=== PATIENT | female | born 1950 | race Caucasian/White ===

== ENCOUNTER 2019-04-08 00:37 | Outpatient (CLI) | payer MEDICARE, BC, SELFPAY ==
--- NOTE | 2019-04-08 10:01 | DI.MAMMO_ITS ---
EXAM: MG MAMMO SCREENING CLINICAL HISTORY: SCREENING Z12.39 TECHNIQUE: Mammograms were interpreted according to the usual protocol including computer analysis w [facility] CAD system, tomosynthesis and C-view imaging. COMPARISON: FINDINGS: Breasts are heterogeneously dense. No dominant mass or clumped microcalcification is identified in e ither breast. The current examination is compared with previous examinations including September 2016 and there has been no gross interval change appearance in comparison with the previous studies. IMPRESSION: No specific evidence of malignancy at this time. Routine screening examinations are suggested at yea rly intervals in this age group according the ACS ACR guidelines. Category 1, breast density category C
== END 2019-04-08 00:57 ==
PROVIDERS: PCP Nurse Practitioner Family; Visit Provider Nurse Practitioner Family
DX: Z12.31 Encounter for screening mammogram for malignant neoplasm of breast (principal)
CPT/HCPCS: 77063; 77067

== ENCOUNTER → 2019-06-04 09:41 | Outpatient (BNVA) | payer MEDICARE, BC, SELFPAY | PROVIDERS: PCP Nurse Practitioner Family; Referring Provider Nurse Practitioner Family; Visit Provider Physical Therapy Assistant | DX: Z12.11 Encounter for screening for malignant neoplasm of colon (principal); Z86.010 Personal history of colon polyps ==

== ENCOUNTER 2019-06-21 11:06 | Day surgery (SDC) | payer MEDICARE, BC, SELFPAY ==
--- NOTE | 2019-06-21 06:55 | W.COLOREPORT ---
Date of service: 06/21/19 Time of Service: 12:28 Colonoscopy Report Date of procedure: 06/21/19 Pre-op diagnosis general: Hx of polyps Post-op diagnosis procedure note: same (diverticulosis and polyps) Procedure: Colonoscopy with polypectomy Surgeon: Ariadna Quiles Anesthesia proc note operative: other (General/ ASA 2/ Joellen Wan CRNA) Estimated blood loss (mL): 3 Pathology: other (cecal polyps, ascending polyp and descending polyp) Complications: None Disposition: no change Indications: 68 y/o female with history of HTN presents for colonoscopy screening pre-op. Her last screening was in 2014, which was remarkable for tubular adenomatous polyps. She denies a family history of colon cancer. She denies any changes in bowel habits including bloody or black tarry stools, abdominal pain, diarrhea or constipation. She describes that she has noticed some food intolerances, to unhealthy items such as fried foods which cause her to have bloating and diarrhea. When she avoids these items, she does not have these symtpoms. She denies constitutional symptoms. Risks, benefits and complications have been reviewed. Complications include but are not limited to bleeding, pain, perforation, missed small lesion/polyp, sore throat, aspiration and adverse reaction to the medications. Questions were entertained and answered to their satisfaction and they wished to proceed. No guarantees were given or implied. Prep: Miralax/Dulcolax Procedure Start Time: 12:28 Procedure End Time: 12:53 Retraction Time: 15 minutes Findings: multiple sessile polyps severe diverticulosis of the sigmoid colon Procedure Description: After informed consent was obtained the patient was taken to the procedure room and placed in a left decubitous position. Monitors were applied and a time out was done. The patients name, date of , procedure, allergies to medications and metal in their body was reviewed. The patient was then sedated. Once sedated and comfortable a rectal exam was done. External exam was normal. Internal exam revealed a normal sphincter tone and no palpable masses. The scope was then introduced and retro-flexed. No internal hemorrhoids, masses or polyps were identified on retro-flexion. The scope was then advanced to the cecum without difficulty. The TI and appendiceal orifice were identified. The prep was good. The scope was then slowly retracted over 15 minutes back into the rectum. Polyps were removed with cold forceps in the cecum, ascending colon and descending colon. Severe sigmoid diverticulosis was also noted. The scope was removed and the patient was woken up and taken back to Same day surgery in stable condition. The patient tolerated the procedure well and there were no immediate complications. Follow up: The patient should follow up in 3-5 years unless they develop changes in bowel habits or other new gastrointestinal complaints.
--- NOTE | 2019-06-21 06:56 | W.PM.DSUDISC ---
Discharge Plan Disposition Patient Disposition: HOME Condition: Good Discharge Details Reason For Visit: SCREENING Attending Provider: Ariadna Quiles Primary Care Provider: Chuck Curry Home Meds and New Rx's Prescriptions: Continued metoprolol succinate [Toprol XL] 100 mg tablet extended release 24 hr 150 mg PO DAILY RF: 0 ibuprofen 200 mg capsule 200 mg PO Q6H PRNRF: 0 calcium carbonate-vitamin D3 600 mg(1,500mg) -200 unit tablet 1 tab PO DAILY RF: 0 acetaminophen 500 mg Tablet 1,000 mg PO PRN PRNRF: 0 Discontinued polyethylene glycol 3350 17 gram/dose powder 238 g PO ONCE Qty: 238 RF: 0 bisacodyl [Dulcolax (bisacodyl)] 5 mg tablet,delayed release (DR/EC) 5 mg PO ONCE Qty: 4 RF: 0 polyethylene glycol 3350 17 gram/dose Powder 238 g PO ONCE RF: 0 bisacodyl 5 mg Tablet 5 mg PO ONCE RF: 0 Discharge Instructions Instructions: Diverticulosis (GEN), Colorectal Polyps (GEN) Additional Instructions: Findings: 3 polyps Diverticulosis Follow up: 3-5 years Please call if you develop: fevers >101.5 Nausea or Vomiting Abdominal pain that is not transient DAY SURGERY UNIT POST ENDOSCOPY INSTRUCTIONS 1. Because there will be medication in your system for the next 24 hours, you may feel a little sleepy. Your coordination will be affected. Therefore: a. Do not drive or operate dangerous equipment for 24 hours. b. Do not drink alcohol beverages for 24 hours (not even beer). c. Plan to go home and rest for the day. 2. Generally there are no restrictions on your activity after a day or so has gone by, but you may feel a bit fatigued for a few days. 3 After you arrive home you may have a light meal and return to a normal diet as you can tolerate it without feeling sick to your stomach. 4. After surgery, you may feel pain or discomfort. This should be only transient, but if it persists please contact your doctor. 5. If there are any questions regarding the findings of your procedure, please feel free to contact your doctor. 6. If you are unable to contact your doctor with a problem, contact the hospital at [phone]. 7. Continue all your regular medications unless directed otherwise. I understand the above instructions and have no questions. Signature of Patient or Responsible Adult Escort Date/Time Name of Responsible Adult Escort Signature of Nurse Date/Time Activity:: Activity as Tolerated Diet:: High Fiber diet Discharge Orders Discharge Orders: Discharge Order (Routine); Ordered 06/21/19 Ordered By: Ariadna Quiles DS: Diagnosis Discharge Diagnosis (1) Diverticulosis: Status: Acute
[2019-06-21 11:18] VITALS: BP 159/88; PULSE 67; RESP 18; TEMP 36.3; O2SAT 100
[2019-06-21] MEDS: Lactated Ringers 1,000 ML 80 ML IV (11:39)
--- NOTE | 2019-06-21 12:35 | BOWEL_PTH ---
PATIENT: Nivia Sam LOC: [facility] U#:[id number] AGE/SX: 68/F ROOM: RE06/21/[address]: Ariadna Quiles MD : 1950 BED: DIS: 06/21/2019 SPEC #: [id number] RECD: 06/21/19 18:07 STATUS: ALONDRA REQ #: [id number] SHELLY: 06/21/19 12:[address]: Ariadna Quiles DEPT: Surgical Specimen RECD BY: Juliana Mane ENTERED: 06/21/19 18:07 SP TYPE: Bowel OTHR DR: Chuck Curry Tissues: 1 - BIOPSY BOWEL 2 - BIOPSY BOWEL 3 - BIOPSY BOWEL Procedures: GROSS AND MICRO LEVEL 4 Comments: [id number]
[2019-06-21] MEDS: Hyoscyamine 0.125 MG SL/ORAL/CHEW SL (13:55)
[2019-06-21 14:10] VITALS: BP 158/76; PULSE 62; RESP 16; TEMP 36.1; O2SAT 99
== END 2019-06-21 15:05 | disposition home or self-care (01) ==
LOC: SUR 11:06
PROVIDERS: PCP Nurse Practitioner Family; Visit Provider Surgery
PROC: 0DJD8ZZ Inspection of Lower Intestinal Tract, Via Natural or Artificial Opening Endoscopic (ICD-10-PCS; CPT 45378; principal; 2019-06-21 12:15)
DX: Z12.11 Encounter for screening for malignant neoplasm of colon (principal); Z86.010 Personal history of colon polyps; D12.2 Benign neoplasm of ascending colon; K63.5 Polyp of colon; I10 Essential (primary) hypertension; K57.30 Diverticulosis of large intestine without perforation or abscess without bleeding
CPT/HCPCS: 45380; 88305; J2704; J3490

== ENCOUNTER 2019-08-26 08:48 | Outpatient (REF) | payer MEDICARE, BC, SELFPAY ==
[2019-08-26 15:46] LABS: HGB 14.5 g/dL (12.0-15.5); Mean Corpuscular Hemoglobin 30.6 pg (27.0-33.0); Mean Corpuscular Volume 92.8 fL (80-95); Mean Platelet Volume 10.1 fL (8.0-11.0); Platelet Count 276 x1000/uL (130-400); RBC 4.74 m/cumm (4.00-5.20); RBC Distribution Width 12.4 % (11.7-14.6); White Blood Cell Count 5.28 k/cumm (4.4-10.8)
[2019-08-26 17:33] LABS: Anion Gap 6.6 mmol/L (3-11); BUN 16 mg/dL (7-18); CO2 31.4 mmol/L (21.0-32.0); CREATININE 0.86 mg/dL (0.55-1.02); Calcium 9.5 mg/dL (8.5-10.1); Calculated LDL 139 mg/dL (<100); Chloride 103 mmol/L (98-107); Cholesterol 229 mg/dL (<200); Glucose 95 mg/dL (74-106); HDL Cholesterol 56 mg/dL (40-60); Potassium 4.5 mmol/L (3.5-5.1); Sodium 141 mmol/L (136-145); Triglyceride 172 mg/dL (<150)
== END 2019-08-26 09:08 ==
LOC: NCHCN 08:48
PROVIDERS: PCP Nurse Practitioner Family; Visit Provider Nurse Practitioner Family
DX: E78.5 Hyperlipidemia, unspecified (principal); I10 Essential (primary) hypertension
CPT/HCPCS: 80048; 80061; 85027

== ENCOUNTER 2019-09-03 11:41 | Outpatient (REF) | payer MEDICARE, BC, SELFPAY ==
--- NOTE | 2019-09-03 09:00 | PAPFT_PTH ---
PATIENT: Nivia Sam [facility] U[facility][id number] AGE/SX: 68/F ROOM: RE09/03/[address]: Chuck Curry : 1950 BED: DIS: 09/03/2019 SPEC #: [id number] RECD: 09/07/19 13:00 STATUS: ALONDRA REDavide #: [id number] SHELLY: 09/03/19 09:[address]: Chuck Curry DEPT: [facility] Cytology RECD BY: Juliana Mane Tissues: 1 - CX/ENDOCX FOR PAP SMEARS Procedures: PAP THIN PREP/UVM Screening HPV DNA PROBE Comments: [id number]
== END 2019-09-03 12:01 ==
LOC: NCHCN 11:41
PROVIDERS: PCP Nurse Practitioner Family; Visit Provider Nurse Practitioner Family
DX: Z12.4 Encounter for screening for malignant neoplasm of cervix (principal); Z11.51 Encounter for screening for human papillomavirus (HPV)
CPT/HCPCS: 88142; 87624

== ENCOUNTER 2019-10-14 09:59 | Outpatient (REF) | payer MEDICARE, BC, SELFPAY ==
[2019-10-14 15:10] LABS: ALT 26 U/L (14-59); AST 18 U/L (15-37); Albumin 4.2 g/dL (3.4-5.0); Alkaline Phosphatase 95 U/L (46-116); Bilirubin, Total 0.6 mg/dL (0.2-1.0); Calculated LDL 118 mg/dL (<100); Cholesterol 203 mg/dL (<200); HDL Cholesterol 53 mg/dL (40-60); Total Protein 6.8 g/dL (6.4-8.2); Triglyceride 164 mg/dL (<150)
[2019-10-14 15:18] LABS: Bilirubin, Direct 0.13 mg/dL (0.00-0.20)
== END 2019-10-14 10:19 ==
LOC: NCHCN 09:59
PROVIDERS: PCP Nurse Practitioner Family; Visit Provider Nurse Practitioner Family
DX: E78.5 Hyperlipidemia, unspecified (principal); Z13.228 Encounter for screening for other metabolic disorders
CPT/HCPCS: 80061; 80076

== ENCOUNTER 2020-03-03 13:56 | Outpatient (REF) | payer MEDICARE, BC, SELFPAY ==
[2020-03-03 20:56] LABS: ALT 21 U/L (14-59); AST 18 U/L (15-37); Alkaline Phosphatase 102 U/L (46-116); Anion Gap 8.7 mmol/L (3-11); BUN 18 mg/dL (7-18); Bilirubin, Total 0.4 mg/dL (0.2-1.0); CO2 26.3 mmol/L (21.0-32.0); CREATININE 0.73 mg/dL (0.55-1.02); Calcium 9.1 mg/dL (8.5-10.1); Chloride 106 mmol/L (98-107); Glucose 95 mg/dL (74-106); Potassium 4.1 mmol/L (3.5-5.1); Sodium 141 mmol/L (136-145); Total Protein 6.5 g/dL (6.4-8.2)
[2020-03-03 21:24] LABS: Calculated LDL 79 mg/dL (<100); Cholesterol 167 mg/dL (<200); HDL Cholesterol 57 mg/dL (40-60); Triglyceride 155 mg/dL (<150)
== END 2020-03-03 14:16 ==
LOC: NCHCN 13:56
PROVIDERS: PCP Nurse Practitioner Family; Visit Provider Nurse Practitioner Family
DX: I10 Essential (primary) hypertension (principal); E78.5 Hyperlipidemia, unspecified; Z51.81 Encounter for therapeutic drug level monitoring
CPT/HCPCS: 80053; 80061

== ENCOUNTER 2020-12-07 01:49 | Outpatient (CLI) | payer MEDICARE, BC, SELFPAY ==
--- NOTE | 2020-12-07 | DI.DEXA_ITS ---
Exam(s) XR DEXA BONE DENSITY W/WO MORALES EXAM: XR DEXA BONE DENSITY W/WO MORALES CLINICAL HISTORY: POSTMENOPAUSAL, Z78.0 TECHNIQUE: Routine DEXA evaluation of the lumbar spine, hip, or forearm. COMPARISON: No exams were available for comparison FINDINGS: Performed on a Hologic unit. Lateral image: No compression fracture evident. Lumbar Spine total T-score: 0.5 Hip total T-score:-0.7 Independent reading at the femoral neck yields a T-score of -1.5 Forearm total T-score: -1.6 IMPRESSION: Bone mineral density measures in the osteopenia range. Fracture risk is moderate. Note: Any spine fracture indicates 5x risk for subsequent spine fracture and 2x risk for subsequent h ip fracture. World Health Organization criteria for BMD interpretation classify patients: Normal...... T- Score at or above -1.0 Osteopenic... T- Score between -1.0 and -2.5 Osteoporosis... T-Score at or below -2.5
--- NOTE | 2020-12-07 | DI.MAMMO_ITS ---
Exam(s) MAMMO SCREENING EXAM: MAMMO SCREENING CLINICAL HISTORY: SCREENING, Z12.39. TECHNIQUE: Bilateral full field digital CC and MLO mammographic images were obtained with 3D tomosyn thesis and utilizing computer aided detection (CAD). COMPARISON: Prior mammograms dating back to 2013, the most recent being March 2019. FINDINGS: The fibroglandular tissue pattern is again noted be quite dense, this decreasing the sensitivity mamm ogram for finding hidden underlying lesions. In the lateral aspect of the left breast there is a partially calcified well-defined small 3 x 2 mill imeter nodule which is unchanged from prior studies and therefore benign. Benign-appearing micro and macrocalcifications are again noted in both breasts. Also few small benig n peripherally calcified oil cysts. There is no significant architectural distortion nor skin thickening-retraction. IMPRESSION: Very dense bilateral fibroglandular tissue. Stable benign findings. No obvious radiographic evidenc e of malignancy. Given the density of this patient's fibroglandular tissue one might consider bilateral screening com plete breast ultrasound examination BI-RADS Category 2 - Benign Findings Breast Density - Category D - Extremely dense Breast density Category C or D implies that the patient has dense breast tissue. Dense breast tissue can make it harder to find cancer on a mammogram. Dense breast tissue is also associated with an incr eased risk of breast cancer. This information about the result of the mammogram report was provided to the patient to raise their awareness. Use this report when you speak with the patient about their risks for breast cancer, which includes their family history. At that time, you may recommend additional screening tests (Ultrasoun d or MRI) as these tests may add significant information. A negative radiographic report should not delay biopsy if a dominant or clinically suspicious mass is present. Up to ten percent of cancers are not identified on mammography. A negative report may reinforce clinical impression. Adenosis and dense breasts may obscure an underlying neoplasm. False positive reports average 6 to 10%. Patient will receive a letter notifying them of these results.
== END 2020-12-07 02:09 ==
PROVIDERS: PCP Nurse Practitioner Family; Visit Provider Family Medicine
DX: Z13.820 Encounter for screening for osteoporosis (principal); Z78.0 Asymptomatic menopausal state; Z12.31 Encounter for screening mammogram for malignant neoplasm of breast; R92.0 Mammographic microcalcification found on diagnostic imaging of breast; R92.1 Mammographic calcification found on diagnostic imaging of breast; M85.89 Other specified disorders of bone density and structure, multiple sites
CPT/HCPCS: 77063; 77067; 77080

== ENCOUNTER 2022-01-11 13:55 | Outpatient (REF) | payer MEDICARE, OTHER, SELFPAY ==
[2022-01-13 11:33] LABS: COVID-19 RT-PCR UVMMC Result Negative (Negative)
== END 2022-01-11 13:56 | disposition home or self-care (01) ==
LOC: NCHCN 13:55
PROVIDERS: Visit Provider Physician Assistant Medical
DX: Z20.822 Contact with and (suspected) exposure to COVID-19 (principal); J32.9 Chronic sinusitis, unspecified
CPT/HCPCS: U0003

== ENCOUNTER 2022-01-13 09:28 | Emergency (ER) | payer MEDICARE, OTHER, SELFPAY ==
[2022-01-13 09:49] VITALS: BP 153/81; PULSE 114; RESP 18; TEMP 37.1; O2SAT 96
--- NOTE | 2022-01-13 10:52 | ED.GENADUL_ITS ---
Discharge Plan Disposition Patient Disposition: HOME Condition: Stable Discharge Details Clinical Impression: Sinusitis, Respiratory tract infection Primary Care Provider: Carissa Cortes ED Provider: Jacky Castrejon Home Meds and New Rx's Prescriptions: New amoxicillin-pot clavulanate 875-125 mg tablet 1 tab PO BID 7 Days Qty: 14 0RF benzonatate 100 mg capsule 100 mg PO TID PRN (Reason: cough) Qty: 30 0RF Continued metoprolol succinate [Toprol XL] 100 mg tablet extended release 24 hr 150 mg PO DAILY ibuprofen 200 mg capsule 200 mg PO Q6H PRN calcium carbonate-vitamin D3 600 mg(1,500mg) -200 unit tablet 1 tab PO DAILY acetaminophen 500 mg Tablet 1,000 mg PO PRN PRN Discharge Instructions Instructions: Sinusitis (ED) Additional Instructions: Please continue to stay well-hydrated and as discussed if you have any worsening symptoms, further difficulty staying hydrated, or other concerns return immediately to the emergency department for reassessment. Please take antibiotics as prescribed and if not improving in the next 48 hours please follow-up with your primary care provider or again return to the emergency department for further work-up. Referrals: Carissa Cortes MD [Primary Care Provider] - (As needed for reassessment or if not improving) Discharge Data Discharge Date/Time-TO BE ENTERED AT DEPARTURE: 01/13/22 11:07 Medical Decision Making Patient presenting to the emergency department for chief complaint of worsening sinus pain and pressure, fever chills, and cough. She states she has had 7 days of symptoms with each day becoming progressively worse. She was seen at the urgent care 2 days ago which a suspected viral illness and was given meds which have not helped. Patient denies any fever this morning but does state fever of 101 yesterday. Physical exam shows sinus tenderness, tachycardia, mild rhonchi heard but cleared with coughing and then lung sounds were clear. Patient does appear acutely ill but nontoxic. I have high suspicion for bacterial such as this with question of possible early pneumonia. Discussed with patient performing labs, and plain film chest x-ray. After discussion and shared decision-making was utilized patient and I decided to hold off on these as this would not change my initial treatment which include antibiotics. 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 Patient prescribed Augmentin and given some Zofran and some associated nausea she has had. After discussion of diagnosis and plan of care patient has no further needs, questions, or concerns and states clear understanding to return to the emergency department for any worsening symptoms. This documentation was generated using [employer] dictation system, please disregard any oddities of phrase or misspellings. HPI General Mode of arrival: ambulatory . Date/Time Provider Initiated Documentation: 01/13/22 09:31 . Limitations to Documentation: no limitations . Information obtained by: patient and RN notes reviewed . History of Present Illness 71 year old F presents to the emergency department with the chief complaint of sinus pain and cough, described as moderate, with intensity rated at 8. Quality is described as aching, and is localized to the face. Patient reports no radiation. Patient started experiencing this day(s) (7) and it has been constant. No exacerbating factors reported . Patient notes cough and malaise. Patient did receive the following treatments prior to arrival, NSAID Related Data Home Medications Medication Instructions Recorded Confirmed calcium carbonate 600 mg-vitamin 1 tab PO DAILY 04/20/19 01/13/22 D3 5 mcg (200 unit) tablet ibuprofen 200 mg capsule 200 mg PO Q6H PRN 04/20/19 01/13/22 metoprolol succinate 100 mg 150 mg PO DAILY 04/20/19 01/13/22 tablet,extended release 24 hr (Toprol XL) acetaminophen 500 mg tablet 1,000 mg PO PRN PRN 06/21/19 01/13/22 amoxicillin 875 mg-potassium 1 tab PO BID 7 days #14 tabs 01/13/22 clavulanate 125 mg tablet benzonatate 100 mg capsule 100 mg PO TID PRN cough #30 caps 01/13/22 Previous Rx's Medication Instructions Recorded amoxicillin 875 mg-potassium 1 tab PO BID 7 days #14 tabs 01/13/22 clavulanate 125 mg tablet benzonatate 100 mg capsule 100 mg PO TID PRN cough #30 caps 01/13/22 Allergies Allergy/AdvReac Type Severity Reaction Status Date / Time No Known Allergies Allergy Verified 01/13/22 09:55 General Stated Complaint: GenMedical IVÁN: 3 Review of Systems Constitutional Constitutional: Reports body ache(s), Reports chills, Reports fever(s), Reports headache(s) and Reports malaise Eyes Eyes: Denies eye discharge ENT Ears, Nose, Mouth, and Throat: Reports as per HPI, Denies ear discharge, Denies otalgia, Reports headache(s), Reports nasal congestion, Denies neck pain, Reports sinus pain, Reports sinus pressure, Reports sore throat and Denies throat swelling Cardiovascular Cardiovascular: Denies chest pain and Denies dyspnea Respiratory Respiratory: Reports cough and Denies dyspnea Musculoskeletal Musculoskeletal: Denies joint swelling and Denies neck pain Integumentary/Breasts Skin/Breast: Denies rash Neurologic Neurologic: Reports headache(s) Allergic/Immunologic Allergic/Immunologic: Denies throat swelling PFSH All Active Problems (Updated 01/13/22 @ 10:53 by Jacky Castrejon NP) Sinusitis (Acute) Respiratory tract infection (Acute) Diverticulosis (Acute) Medical History (Updated 01/13/22 @ 10:53 by Jacky Castrejon NP) Actinic keratoses Diffuse cystic mastopathy Essential hypertension Facial basal cell cancer Hyperlipidemia Loose right total knee arthroplasty Menopausal syndrome Seborrheic keratoses Squamous cell carcinoma, arm Tubular adenoma of colon Vaginal atrophy Surgical History History of arthroplasty of right knee History of colonoscopy (~06/21/19) 2015- Tubular adenoma Social History Smoking/Tobacco Use Status: Former Tobacco Use Quit Date: 04/14/79 Smoking risk assessment performed?: Yes Alcohol Intake: current Alcohol Intake frequency: 0-2 drinks per day Alcohol type: wine Drug use: Never Substance use type: does not use Do you feel safe at home: Yes Do you feel safe in your relationship?: Yes Exam Const General: cooperative, comfortable and no acute distress Orientation: alert and awake HENMT Head: normal to inspection, normocephalic and atraumatic Ears: hearing grossly normal bilaterally and TM's normal bilaterally General nose exam: external nose normal Face and sinus: no erythema and sinus tenderness ethmoid and maxillary Mouth: oral mucosae normal, no drooling, no muffled voice and no trismus Throat: posterior oropharynx normal Neck Neck: normal visual inspection, full ROM, no lymphadenopathy, no meningeal signs, trachea midline and supple Resp Effort & Inspection: normal respiratory effort, able to speak in complete sentences and cough Quality of cough: dry Auscultation: clear to auscultation bilaterally Cardio Rate: regular rate Rhythm: regular rhythm Heart Sounds: S1 normal, S2 normal, normal S1 and S2, no click, no gallops, no murmurs and no rubs Skin General skin exam: no rashes or lesions noted and dry skin (warm) Neuro General: patient alert, patient awake, patient oriented x3, gait normal and moves all extremities Cognition: normal cognition Speech: speech normal Course Vital Signs Vital signs: Vital Signs Temperature 37.1 C 01/13/22 09:49 Pulse 114 H 01/13/22 09:49 Respiratory Rate 18 01/13/22 09:49 Blood Pressure 153/81 H 01/13/22 09:49 Pulse Oximetry 96 01/13/22 09:49 Temperature 37.1 C 01/13/22 09:49 Temperature Source Oral 01/13/22 09:49 Pulse 114 H 01/13/22 09:49 Respiratory Rate 18 01/13/22 09:49 Respiratory Effort Non-Labored 01/13/22 09:57 Blood Pressure 153/81 H 01/13/22 09:49 Blood Pressure Position Sitting 01/13/22 09:49 Pulse Oximetry 96 01/13/22 09:49 Oxygen Delivery Method Room Air 01/13/22 09:49 Oxygen Flow Rate 0 01/13/22 09:49 Pain Level 8 01/13/22 09:49 PAWSS Have you Been Recently Intoxicated or Drunk Within the Last 30 days?: No Have you Ever Experienced Previous Episodes of Alcohol Withdrawal?: No Have you ever Experienced Withdrawal Seizures?: No Have you ever Experienced Delirium Tremens(DT)s?: No Have you ever undergone Alcohol Rehabilitation Treatment (i.e, inpt ot outpatient treatment programs)?: No Have you ever Experienced Blackouts?: No Have you ever Combined Alcohol with other Downers within the last 90 days?: No Have you ever Combined Alcohol with any other Substance of Abuse during the last 90 days?: No Positive Blood Alcohol level on Presentation? [PCS.BAL]: No Evidence of Increased Autonomic Activity (i.e. HR>120, tremor, sweating, agitation, nausea)?: No Result: 0
[2022-01-13] MEDS: Ondansetron O.D.T. 4 MG TABEF, 3 TABS/BTL PO (10:59)
[2022-01-13] MEDS: Amox. 875/Clav. 125, 2 TABS/BTL 1 TAB PO (10:59)
[2022-01-13] MEDS: Amoxicillin 875/Clav. 125 TAB PO (10:59)
[2022-01-13] MEDS: Ondansetron O.D.T. 4 MG TABEF PO (10:59)
[2022-01-13 11:05] VITALS: BP 142/78; PULSE 75; RESP 18; RESP 20; TEMP 36.8; O2SAT 99
== END 2022-01-13 11:07 | disposition home or self-care (01) ==
PROVIDERS: Emergency Provider Nurse Practitioner Family; PCP Family Medicine
DX: J32.9 Chronic sinusitis, unspecified (principal); J98.8 Other specified respiratory disorders; I10 Essential (primary) hypertension; R00.0 Tachycardia, unspecified; Z87.891 Personal history of nicotine dependence
CPT/HCPCS: 99283; 99284

== ENCOUNTER → 2022-01-23 14:14 | Outpatient (CLI) | payer MEDICARE, OTHER, SELFPAY ==
--- NOTE | 2022-01-23 | DI.RAD_ITS ---
Exam(s) XR CHEST 2V PA LATERAL EXAM: XR CHEST 2V PA LATERAL CLINICAL HISTORY: COUGH-R05.8--ONGOING X2WKS TECHNIQUE: 2D digital imaging was performed. COMPARISON: No exams were available for comparison FINDINGS: The heart is not enlarged. There may be minimal scarring at the lung bases, otherwise the lungs are clear and well expanded. No pleural effusion seen. Mediastinal contours appear intact. IMPRESSION: no evidence of acute process. RADIATION DOSE DELIVERED: Total DLP
== END ==
PROVIDERS: PCP Family Medicine; Visit Provider Physician Assistant Medical
DX: R05.8 Other specified cough (principal)
CPT/HCPCS: 71046

== ENCOUNTER 2022-06-05 09:59 | Outpatient (REF) | payer MEDICARE, OTHER, SELFPAY ==
[2022-06-05 15:55] LABS: Anion Gap 6.8 mmol/L (3-11); BUN 17 mg/dL (7-18); CO2 29.2 mmol/L (21.0-32.0); CREATININE 0.8 mg/dL (0.55-1.02); Calcium 9.3 mg/dL (8.5-10.1); Chloride 107 mmol/L (98-107); Estimated GFR 78.72 (mL/min/1.73m2); Glucose 95 mg/dL (74-106); Potassium 4.1 mmol/L (3.5-5.1); Sodium 143 mmol/L (136-145)
[2022-06-06 13:02] LABS: Hepatitis C Ab w Rflx HCV PCR Negative (Negative)
== END 2022-06-05 10:00 | disposition home or self-care (01) ==
LOC: NCHCN 09:59
PROVIDERS: PCP Family Medicine; Visit Provider Family Medicine
DX: I10 Essential (primary) hypertension (principal); Z11.59 Encounter for screening for other viral diseases
CPT/HCPCS: 80048; 86803

== ENCOUNTER 2022-06-06 01:01 | Outpatient (CLI) | payer MEDICARE, OTHER, SELFPAY ==
--- NOTE | 2022-06-06 12:15 | DI.MAMMO_ITS ---
Exam(s) MAMMO SCREENING EXAM: MAMMO SCREENING CLINICAL HISTORY: SCREENING, Z12.39 TECHNIQUE: Bilateral full field digital CC and MLO mammographic images were obtained with 3D tomosyn thesis and utilizing computer aided detection (CAD). COMPARISON: Available for comparison. FINDINGS: Masses/Architectural Distortion: None seen. The patient has had a prior left breast biopsy. Microcalcifications: No suspicious pleomorphic-type are seen. Skin Thickening/Nipple Retraction: None. IMPRESSION: 1. No significant interval change with no specific features of malignancy noted. 2. Unless there is more urgent need, screening mammography is recommended, as per [place] [employer] guidelines. BI-RADS Category 1 - Negative Breast Density - Category D - Extremely dense Breast density category C or D implies that the patient has dense breast tissue. Dense breast tissue is very common and is not abnormal but dense breast tissue can make it harder to find cancer on a ma mmogram. Also, dense breast tissue may increase their breast cancer risk. This information about the result of the mammogram report was provided to the patient to raise their awareness. Use this report when you speak with the patient about their risks for breast cancer, which includes their family hist ory. At that time, you may recommend for more screening tests (Ultrasound or MRI) as they might be us eful based on their risk. A negative radiographic report should not delay biopsy if a dominant or clinically suspicious mass is present. Up to ten percent of cancers are not identified on mammography. A negative report may reinforce clinical impression. Adenosis and dense breasts may obscure an underlying neoplasm. False positive reports average 6 to 10%. Patient will receive a letter notifying them of these results.
== END 2022-06-06 01:21 ==
LOC: DI 01:01
PROVIDERS: PCP Family Medicine; Visit Provider Family Medicine
DX: Z12.31 Encounter for screening mammogram for malignant neoplasm of breast (principal)
CPT/HCPCS: 77063; 77067

== ENCOUNTER 2023-01-10 07:32 | Day surgery (SDC) | payer MEDICARE, OTHER, SELFPAY ==
[2023-01-10 07:45] VITALS: BP 149/74; PULSE 64; RESP 16; TEMP 36.3; O2SAT 99
[2023-01-10] MEDS: Tropicam./Phenyleph. (1/2.5%) 5 ML BTL OS ×3 (07:59→08:14)
--- NOTE | 2023-01-10 08:37 | ANES.PREOP_ITS ---
General Info Date of Service Date Performed: 01/10/23 Height: 5 ft 3 in Weight: 62.7 kg Body Mass Index (BMI): 24.5 Surgical Procedure: Operation Date: 01/10/23 09:10 Proposed Procedure Side Surgeon p Cataract Extraction with IOL Implant Left Mat Peters MD Meds Allergies and Home Medications Allergies Allergy/AdvReac Type Severity Reaction Status Date / Time erythromycin base AdvReac Intermediate Other (See Unverified 01/10/23 07:55 Comment) Home Medication Medication Instructions Recorded calcium carbonate 600 mg-vitamin 1 tab PO DAILY 04/20/19 D3 5 mcg (200 unit) tablet ibuprofen 200 mg capsule 200 mg PO Q6H PRN 04/20/19 metoprolol succinate 100 mg 150 mg PO DAILY 04/20/19 tablet,extended release 24 hr (Toprol XL) acetaminophen 500 mg tablet 1,000 mg PO PRN PRN 06/21/19 benzonatate 100 mg capsule 100 mg PO TID PRN cough #30 caps 01/13/22 simvastatin 20 mg tablet 20 mg PO HS 01/08/23 Current Visit Medications: Current Medications Generic Name Dose Route Start Last Admin Trade Name Freq PRN Reason Stop Dose Admin Acetaminophen 1,000 mg 01/10/23 06:00 Acetaminophen 500 Mg Tab PO 02/09/23 05:59 Q4H PRN PRN Balanced Salt Solution 500 ml 01/10/23 06:00 Balanced Salt Soln.-Plus 500 Ml Bag OP 02/09/23 05:59 DIRECTED [facility] Miscellaneous Medication 0 ml 01/10/23 06:00 Prednisolone 1%, Moxifloxacin 0.5%, Nepafenac 0.1% 5ml Btl OS 02/09/23 05:59 DIRECTED JUAN Miscellaneous Medication 0 ml 01/10/23 06:00 01/10/23 08:14 Tropicam./Phenyleph. (1/2.5%) 5 Ml Btl OS 02/09/23 05:59 1 drp DIRECTED JUAN Administration Tetracaine HCl 0 ml 01/10/23 06:00 Tetracaine 0.5% 4 Ml Btl OS 02/09/23 05:59 DIRECTED JUAN PFSH Active Problems Active Problems: Problem Status Onset Code Posterior subcapsular age-related cataract of left eye H25.042 Cortical age-related cataract, left eye H25.012 Nuclear age-related cataract, left eye H25.12 Diverticulosis K57.90 Medical History Medical History Actinic keratoses Diffuse cystic mastopathy Essential hypertension Facial basal cell cancer Hyperlipidemia Loose right total knee arthroplasty Menopausal syndrome Seborrheic keratoses Squamous cell carcinoma, arm Tubular adenoma of colon Vaginal atrophy Surgical History Surgical History History of arthroplasty of right knee History of colonoscopy (~06/21/19) 2015- Tubular adenoma Tobacco Smoking/Tobacco Use Status: Former Tobacco Use Alcohol Alcohol Intake: current Alcohol intake frequency: 0-2 drinks per day Alcohol type: wine Substance Use Substance use: Never Substance use type: does not use Vital Signs and Lab Results Vital Signs Most Recent Vital Signs in EMR: Most Recent Vital Signs Temp Pulse Resp BP Pulse Ox 36.3 C L 64 16 149/74 H 99 01/10/23 07:45 01/10/23 07:45 01/10/23 07:45 01/10/23 07:45 01/10/23 07:45 Lab Results Blood Type / Crossmatch: No Data to Display Complete Blood Count: No Data to Display Complete Metabolic Panel: No Data to Display Liver Function Panel: No Data to Display Coagulation Panel: No Data to Display Cardiac Panel: No Data to Display Arterial Blood Gas: No Data to Display Venous Blood Gas: No Data to Display Pancreas Panel: No Data to Display Thyroid Panel: No Data to Display Infectious Disease: No Data to Display Blood Cultures: No Data to Display Toxicology Panel: No Data to Display Anesthesia Assessment and Plan Anesthesia History Personal History: No History of Anesthesia Complications Family History: No Family History of Anesthesia Complications Exercise Tolerance Exercise Tolerance: Metabolic Equivalents>4 Pertinent Negatives Pertinent Negatives: No Symptoms of GERD, No Major Cardiovascular Symptoms or Complaints and No Major Pulmonary Symptoms or Complaints Cardiac & Pulmonary Exam Cardiac Exam: Normal S1/S2 Heart Sounds Pulmonary Exam: Clear Bilateral Breath Sounds Implantable Cardiac Device Does patient have a Pacemaker or an ICD?: No Airway Exam Known Difficult Airway: No Mallampati Class: 2 Mouth Opening: Normal (> 3cm) Thyromental Distance: Greater than 3 cm Neck Range of Motion: Full ROM Neck Circumference: Normal Teeth Condition: Normal Dentition ASA Classification ASA Score: ASA 2 Emergency Case?: No NPO Status NPO Status: NPO Clear Liquids>2 hours (coffee with cream at 0600, plan for local case, no sedation) Anesthesia Plan Resuscitation Status: Full Code Anesthesia Technique: MAC Anesthesia Airway Planned: Natural Airway Monitors Used: Standard Monitors
[2023-01-10 08:40] VITALS: BMI 24.5
[2023-01-10] MEDS: Tetracaine 0.5% 4 ML BTL OS (09:01)
[2023-01-10] MEDS: Lidocaine 1% Pres-Free 5 ML VIAL (09:02)
[2023-01-10] MEDS: Phenylephrine/Lidocaine (15/10) MG/ML 1 ML VIAL (09:03)
[2023-01-10] MEDS: Povidone-Iodine Ophth 30 ML BTL (09:03)
[2023-01-10] MEDS: Duovisc Viscoelastic System EACH 1 EACH (09:04)
[2023-01-10] MEDS: Balanced Salt Soln.-PLUS 500 ML BAG OP (09:05)
[2023-01-10 09:24] VITALS: BP 148/81; PULSE 59; RESP 18; TEMP 36.4; O2SAT 98
--- NOTE | 2023-01-10 09:24 | W.PM.DSUDISC ---
Date of service: 01/10/23 Time of Service: 09:24 Discharge Plan Disposition Patient Disposition: Home Discharge Details Attending Provider: Mat Peters Primary Care Provider: Carissa Cortes Home Meds and New Rx's Prescriptions: No Action metoprolol succinate [Toprol XL] 100 mg tablet extended release 24 hr 150 mg PO DAILY ibuprofen 200 mg capsule 200 mg PO Q6H PRN calcium carbonate-vitamin D3 600 mg(1,500mg) -200 unit tablet 1 tab PO DAILY benzonatate 100 mg capsule 100 mg PO TID PRN (Reason: cough) Qty: 30 0RF acetaminophen 500 mg Tablet 1,000 mg PO PRN PRN simvastatin 20 mg tablet 20 mg PO HS Patient Comments: TAKE ONE TABLET BY MOUTH EVERY NIGHT Discharge Instructions Stand Alone Forms: Post-op Topical Cataract, Tran Sultana (DSU) Discharge Orders Discharge Orders: Discharge Order (Routine); Ordered 01/10/23 Ordered By: Mat Peters DS: Diagnosis Discharge Diagnosis (1) Posterior subcapsular age-related cataract of left eye: Status: Resolved (2) Cortical age-related cataract, left eye: Status: Resolved (3) Nuclear age-related cataract, left eye: Status: Resolved
--- NOTE | 2023-01-10 09:25 | ROE_ITS ---
Date of service: 01/10/23 Time of Service: 09:25 Operative Note Operative Note DATE OF PROCEDURE: 01/10/23 PRE-OP DIAGNOSIS: Nuclear/cortical/posterior subcapsular cataract, left eye POST-OP DIAGNOSIS: same PROCEDURE: Cataract extraction using phacoemulsification with intraocular lens implant, left eye SURGEON: Mat Peters ANESTHESIA TYPE: Local By Surgeon and MAC Refer to Anesthesia Record PATHOLOGY: none sent COMPLICATIONS: None Patient was transported to: same day Patient's condition: stable Implants: Roosevelt and Roosevelt Tecnis Eyhance [id number] Indications: Progressive decreased vision due to cataract, left eye Procedure Description: CATARACT SURGERY OPERATIVE REPORT PREOPERATIVE DIAGNOSIS: 1. Nuclear/cortical/posterior subcapsular cataract, left eye POSTOPERATIVE DIAGNOSIS: Same OPERATION: 1. Cataract extraction using phacoemulsification with posterior chamber intraocular lens implant, left eye. IOL: IOL Hemodialysis Charge Nurse/Model: Roosevelt & Roosevelt Tecnis Eyhance DIB00 IOL Power: + 22.0 diopters IOL Serial Number: [id number] Optic Diameter: 6.0 mm Haptic/Overall Diameter: 13.0 mm PHACO INFO: Kiel Kaptaurion Vision System with OZil and Active Fluidics Cumulative Dispersed Energy (CDE): 18.64 seconds SURGEON: Mat Peters MD, KATERINA ANESTHESIA: Monitored A [facility] (MAC), with local sub-tenon's anesthetic infiltration COMPLICATIONS: None SPECIMENS: None INDICATIONS FOR PROCEDURE: The patient is a 72-year-old lady with history of diminished visual acuity in her left eye secondary to the development of nuclear/cortical/posterior subcapsular cataract. She is significantly symptomatic that she desires cataract surgery and attempt to improve and maximize her vision. See office notes for detailed information. PROCEDURE: The correct surgical eye was identified and marked as the left eye and the pupil was dilated in the preoperative area using mydriatics and cycloplegics. The dilated pupil size was 6.0 mm. The patient elected to proceed without oral sedation. The patient was brought to the operating room where cardiopulmonary monitoring was instituted and surgical time-out was performed, confirming the correct operative eye and IOL power. Topical anesthesia was administered and ophthalmic povidone-iodine 5% was instilled into the conjunctival fornices. The mel-ocular area was prepped with Betadine 10% solution and draped in the usual sterile fashion for intraocular surgery, including an aperture drape. A Tegaderm transparent film dressing was cut in half and used to cover the lashes and lid margins. Care was taken to sequester the lashes and lid margins under the Tegaderm dressing. A lid speculum was placed between the lids of the operative eye and the Kiel LuxOR Revalia operating microscope was maneuvered into position. Jaycee scissors were then used to make a conjunctival buttonhole approximately 6mm posterior to the limbus in the inferonasal quadrant. Blunt dissection was carried out to expose bare sclera, and a blunt-tipped sub-tenon?s anesthesia cannula was introduced and passed posteriorly along the globe where non- preserved plain lidocaine was injected into posterior sub-Tenon?s space. A sideport knife was used to make a paracentesis port. Intraocular phenylephrine/lidocaine was injected into the anterior chamber.. The anterior chamber was filled with viscoelastic. A keratome knife was used to construct a 2-plane near-clear corneal tunnel extending 2.0mm into clear cornea. A flap was raised on the anterior capsule and capsulorhexis forceps were used to complete a continuous curvilinear capsulorhexis of 5.0 mm. Balanced salt solution was then used to perform cortical cleaving hydrodissection and nuclear hydrodelineation until the lens could be freely rotated within the capsular bag. The lens nucleus was then disassembled and removed within the capsular bag and iris plane using phacoemulsification. Residual cortical material was removed using the irrigation/aspiration handpiece. The posterior capsule was carefully polished to remove as much residual lens epithelial cells as safely possible. The capsular bag was then inflated and the anterior chamber deepened with viscoelastic. The lens implant described above was inserted into the capsular bag using the Roosevelt and Roosevelt Simplicity pre-loaded injector. A Kuglen hook was used to dial the IOL into position. Residual viscoelastic was then removed first from posterior to the IOL, then from the anterior chamber using the I/A handpiece. The lens implant was noted to center nicely within the capsular bag. The incisions were stromally hydrated, and the anterior chamber was reformed using BSS. Then 0.5cc of moxifloxacin 1.0mg/ml were injected into the capsular bag and anterior chamber. The incisions were checked with a Weck spear and found to be secure. Several drops of ophthalmic povidone-iodine 5% were then applied to the eye followed by two drops of Imprimis combination prednisolone/moxifloxacin/nepafenac solution. Th e drapes were removed and a clear plastic protective eye shield was placed over the eye. The patient was then returned to Same Day Surgery in stable condition.
--- NOTE | 2023-01-10 09:40 | W.ANESPOSTOP ---
Postoperative Evaluation Date, Time and Location Date Performed: 01/10/23 Time Performed: 09:32 Patient Location: Day Surgery Unit Vital Signs Most Recent Imported Vital Signs: Most Recent Vital Signs Temp Pulse Resp BP Pulse Ox 36.4 C L 59 L 18 148/81 H 98 01/10/23 09:24 01/10/23 09:24 01/10/23 09:24 01/10/23 09:24 01/10/23 09:24 Pain Score Most Recent Pain Score: Most Recent Pain Score Pain Level 0 01/10/23 09:24 Assessment Mental Status: Awake (Alert & Oriented to Patient Baseline) Airway and Respiratory Function: Patent airway with normal (patient baseline) respiratory exam Cardiovascular Function: Hemodynamically Stable Hydration Status: Adequately Hydrated Nausea & Vomiting: No Nausea or Vomiting Pain: Pt. Denies Any Pain Peripheral Nerve Block: Patient did not receive a nerve block
== END 2023-01-10 09:51 | disposition home or self-care (01) ==
LOC: SUR 07:32
PROVIDERS: PCP Family Medicine; Visit Provider Ophthalmology
PROC: (CPT 66984; principal; 2023-01-10 09:00)
DX: H25.042 Posterior subcapsular polar age-related cataract, left eye (principal); H25.012 Cortical age-related cataract, left eye; H25.12 Age-related nuclear cataract, left eye; I10 Essential (primary) hypertension
CPT/HCPCS: 66984; V2632

== ENCOUNTER 2023-05-14 19:31 | Outpatient (REF) | payer MEDICARE, OTHER, SELFPAY ==
[2023-05-14 19:40] LABS: BUN 22 mg/dL (7-18); CREATININE 0.8 mg/dL (0.55-1.02); Calcium 9.4 mg/dL (8.5-10.1); Chloride 103 mmol/L (98-107); Estimated GFR 78.24 (mL/min/1.73m2); Glucose 98 mg/dL (74-106); Potassium 3.9 mmol/L (3.5-5.1); Sodium 141 mmol/L (136-145)
== END 2023-05-14 19:32 | disposition home or self-care (01) ==
LOC: NCHCN 19:31
PROVIDERS: PCP Family Medicine; Visit Provider Family Medicine
DX: I10 Essential (primary) hypertension (principal)
CPT/HCPCS: 80048

== ENCOUNTER → 2023-06-11 01:27 | Outpatient (CLI) | payer MEDICARE, OTHER, SELFPAY ==
--- NOTE | 2023-06-11 09:30 | DI.MAMMO_ITS ---
Exam(s) MAMMO SCREENING EXAM: MAMMO SCREENING CLINICAL HISTORY: Screening, Z12.31 TECHNIQUE: Bilateral full field digital CC and MLO mammographic images were obtained with 3D tomosyn thesis and utilizing computer aided detection (CAD). COMPARISON: Available for comparison. FINDINGS: Masses/Architectural Distortion: The patient has had a prior left breast biopsy. Suspicious masses. No new areas of architectural distortion are identified. Microcalcifications: No suspicious pleomorphic-type are seen. Skin Thickening/Nipple Retraction: None. IMPRESSION: 1. No significant interval change with no specific features of malignancy noted. 2. Unless there is more urgent need, screening mammography is recommended, as per [place] [employer] guidelines. BI-RADS Category 1 - Negative Breast Density - Category D - Extremely dense Breast density category C or D implies that the patient has dense breast tissue. Dense breast tissue is very common and is not abnormal but dense breast tissue can make it harder to find cancer on a ma mmogram. Also, dense breast tissue may increase their breast cancer risk. This information about the result of the mammogram report was provided to the patient to raise their awareness. Use this report when you speak with the patient about their risks for breast cancer, which includes their family hist ory. At that time, you may recommend for more screening tests (Ultrasound or MRI) as they might be us eful based on their risk. A negative radiographic report should not delay biopsy if a dominant or clinically suspicious mass is present. Up to ten percent of cancers are not identified on mammography. A negative report may reinforce clinical impression. Adenosis and dense breasts may obscure an underlying neoplasm. False positive reports average 6 to 10%. Patient will receive a letter notifying them of these results.
== END ==
PROVIDERS: PCP Family Medicine; Visit Provider Family Medicine
DX: Z12.31 Encounter for screening mammogram for malignant neoplasm of breast (principal)
CPT/HCPCS: 77063; 77067

== ENCOUNTER → 2023-09-04 04:05 | Outpatient (CLI) | payer MEDICARE, OTHER, SELFPAY ==
--- NOTE | 2023-09-04 | DI.DEXA_ITS ---
Exam(s) XR DEXA BONE DENSITY W/WO MORALES EXAM: XR DEXA BONE DENSITY W/WO MORALES CLINICAL HISTORY: M85.88 other specified disorders of bone density / structure, other site, TECHNIQUE: HoloGliph Horizon C densitometer analysis of left hip, lumbar spine and left forearm. Lat eral survey image of the thoracic and lumbar spine. COMPARISON: CR XR DEXA BONE DENSITY W/WO MORALES from 12/07/2020 FINDINGS: Lateral view of the thoracic and lumbar spine shows no evidence of compression fractures. Bone mineral density measurements of the lumbar spine correspond to a total T-score of 0.0, in the n ormal range. This represents a 4.5 percent decrease compared to 2020. Bone mineral density measurements of the left hip correspond to a total T-score of -0.9. This repre sents a 1.7 percent decrease from 2020, not statistically significant. The femoral neck T-score is -1.7, in the osteopenic range.. Theleft forearm bone mineral density measurements correspond to a T-score of the distal 3rd of -1.2, in the osteopenic range.. IMPRESSION: Normal bone density of the lumbar spine. Osteopenia of the hip and forearm.
== END ==
PROVIDERS: PCP Family Medicine; Visit Provider Family Medicine
DX: M85.88 Other specified disorders of bone density and structure, other site (principal); Z13.820 Encounter for screening for osteoporosis
CPT/HCPCS: 77080

== ENCOUNTER 2024-05-19 10:35 | Outpatient (REF) | payer MEDICARE, OTHER, SELFPAY ==
[2024-05-19 15:19] LABS: Calculated LDL 91 mg/dL (<100); Cholesterol 179 mg/dL (<200); HDL Cholesterol 58 mg/dL (40-60); Triglyceride 151 mg/dL (<150)
[2024-05-19 16:15] LABS: COMMENT (LAB VIEW ONLY) 180.45 mg/dL; Microalb ug/mg Crea 18.5 ug/mg Cr
== END 2024-05-19 10:36 | disposition home or self-care (01) ==
LOC: NCHCN 10:35
PROVIDERS: PCP Family Medicine; Visit Provider Family Medicine
DX: E78.5 Hyperlipidemia, unspecified (principal)
CPT/HCPCS: 80061; 82043; 82570

== ENCOUNTER 2024-06-15 12:01 | Outpatient (REF) | payer MEDICARE, OTHER, SELFPAY ==
[2024-06-15 16:16] LABS: Anion Gap 6.4 mmol/L (3-11); BUN 21 mg/dL (7-18); CO2 29.6 mmol/L (21.0-32.0); CREATININE 0.9 mg/dL (0.55-1.02); Calcium 9.8 mg/dL (8.5-10.1); Chloride 105 mmol/L (98-107); Glucose 102 mg/dL (74-106); Potassium 4.5 mmol/L (3.5-5.1); Sodium 141 mmol/L (136-145)
== END 2024-06-15 12:02 | disposition home or self-care (01) ==
LOC: NCHCN 12:01
PROVIDERS: PCP Family Medicine; Visit Provider Family Medicine
DX: I10 Essential (primary) hypertension (principal)
CPT/HCPCS: 80048

== ENCOUNTER 2024-06-16 01:15 | Outpatient (CLI) | payer MEDICARE, OTHER, SELFPAY ==
--- NOTE | 2024-06-16 08:10 | DI.MAMMO_ITS ---
Exam(s) MAMMO SCREENING EXAM: MAMMO SCREENING CLINICAL HISTORY: Screening, Z12.31. TECHNIQUE: Bilateral full field digital CC and MLO mammographic images were obtained with 3D tomosyn thesis and utilizing computer aided detection (CAD). COMPARISON: Prior mammograms were reviewed. Patient has had prior left breast biopsy FINDINGS: The fibroglandular tissue pattern is again noted be dense, this somewhat decreasing the sensitivity o f the for finding hidden underlying lesions. Towards the posterior aspect of the left breast there is a suggestion of a 1.4 by 1.0 cm nodule locat ed 8 cm in from the nipple on the MLO view. Spot compression view recommended No new right breast findings. No malignant-appearing microcalcification groups in either breast There is no significant architectural distortion nor skin thickening-retraction. IMPRESSION: Dense bilateral fibroglandular tissue. In the posterior aspect of the left breast there is a nodule measuring 14 x 10 mm. Spot compression left breast MLO view and ultrasound recommended. BI-RADS Category 0 - Incomplete: Need additional imaging evaluation Breast Density - Category C - Heterogeneously dense Breast density Category C or D implies that the patient has dense breast tissue. Dense breast tissue can make it harder to find cancer on a mammogram. Dense breast tissue is also associated with an incr eased risk of breast cancer. This information about the result of the mammogram report was provided to the patient to raise their awareness. Use this report when you speak with the patient about their risks for breast cancer, which includes their family history. At that time, you may recommend additional screening tests (Ultrasoun d or MRI) as these tests may add significant information. A negative radiographic report should not delay biopsy if a dominant or clinically suspicious mass is present. Up to ten percent of cancers are not identified on mammography. A negative report may reinforce clinical impression. Adenosis and dense breasts may obscure an underlying neoplasm. False positive reports average 6 to 10%. Patient will receive a letter notifying them of these results.
== END 2024-06-16 01:35 ==
LOC: DI 01:48
PROVIDERS: PCP Family Medicine; Visit Provider Family Medicine
DX: Z12.31 Encounter for screening mammogram for malignant neoplasm of breast (principal); R92.333 Mammographic heterogeneous density, bilateral breasts
CPT/HCPCS: 77063; 77067

== ENCOUNTER 2024-06-22 01:10 | Outpatient (CLI) | payer MEDICARE, OTHER, SELFPAY ==
--- NOTE | 2024-06-22 | DI.MAMMO_ITS ---
Exam(s) MAMMO SCREEN CALL BACK UNI EXAM: MAMMO SCREEN CALL BACK UNI CLINICAL HISTORY: Suggestion of 1.4 x 1.0 cm nodule 8 cm from nipple, lt breast. TECHNIQUE: Craniocaudal and mediolateral oblique Full Field Digital Mammography views of the left br east with Computer Aided Diagnosis. COMPARISON: Comparison is made with prior examinations. FINDINGS: Mammography/Tomosynthesis: Masses/Architectural Distortion: The area of concern does not persist on the additional views. No ar eas of architectural distortion are seen. No suspicious masses are present. Microcalcifictions: No suspicious pleomorphic-type are seen. Skin Thickening/Nipple Retraction: None. IMPRESSION: 1. No evidence of malignancy is noted. 2. Unless there is more urgent need, follow-up screening mammography is recommended, as per [employer] guidelines. 3. The findings were discussed with the patient on the date of the examination. BI-RADS Category 1 - Negative Breast Density - Category C - Heterogeneously dense Breast density Category C or D implies that the patient has dense breast tissue. Dense breast tissue can make it harder to find cancer on a mammogram. Dense breast tissue is also associated with an incr eased risk of breast cancer. This information about the result of the mammogram report was provided to the patient to raise their awareness. Use this report when you speak with the patient about their risks for breast cancer, which includes their family history. At that time, you may recommend additional screening tests (Ultrasoun d or MRI) as these tests may add significant information. A negative radiographic report should not delay biopsy if a dominant or clinically suspicious mass is present. Up to ten percent of cancers are not identified on mammography. A negative report may reinforce clinical impression. Adenosis and dense breasts may obscure an underlying neoplasm. False positive reports average 6 to 10%. Patient will receive a letter notifying them of these results.
== END 2024-06-22 01:30 ==
LOC: DI 01:10
PROVIDERS: PCP Family Medicine; Visit Provider Family Medicine
DX: Z12.31 Encounter for screening mammogram for malignant neoplasm of breast (principal); R92.8 Other abnormal and inconclusive findings on diagnostic imaging of breast; R92.333 Mammographic heterogeneous density, bilateral breasts
CPT/HCPCS: 77063; 77067

== ENCOUNTER → 2024-07-01 13:28 | Outpatient (BNVA) | payer MEDICARE, OTHER, SELFPAY | PROVIDERS: PCP Family Medicine; Referring Provider Family Medicine; Visit Provider Physical Therapy Assistant | DX: Z12.11 Encounter for screening for malignant neoplasm of colon (principal); Z86.0101 Personal history of adenomatous and serrated colon polyps ==

== ENCOUNTER 2024-07-09 06:22 | Day surgery (SDC) | payer MEDICARE, OTHER, SELFPAY ==
[2024-07-09 06:32] VITALS: BP 138/79; PULSE 83; RESP 20; TEMP 36.1; O2SAT 98
[2024-07-09] MEDS: Lactated Ringers 1,000 ML 80 ML IV (06:48)
--- NOTE | 2024-07-09 07:10 | W.ANESPRE ---
General Info Date of Service Date Performed: 07/09/24 Height: 5 ft 3 in Weight: 64 kg Body Mass Index (BMI): 25.0 Surgical Procedure: Operation Date: 07/09/24 07:35 Proposed Procedure Side Surgeon khushi Kim MD Meds Allergies and Home Medications Allergies Allergy/AdvReac Type Severity Reaction Status Date / Time erythromycin base AdvReac Intermediate Other (See Verified 07/09/24 06:30 Comment) Home Medication ?Medication ?Instructions ?Recorded calcium 600 mg (as 1 tab PO DAILY 04/20/19 carbonate)-vitamin D3 5 mcg (200 unit) tablet ibuprofen 200 mg capsule 200 mg PO Q6H PRN 04/20/19 acetaminophen 500 mg tablet 1,000 mg PO PRN PRN 06/21/19 simvastatin 20 mg tablet 20 mg PO HS 01/08/23 irbesartan 150 mg tablet 150 mg PO DAILY 06/29/24 bisacodyl 5 mg tablet,delayed 5 mg PO ONCE #4 tabs 07/01/24 release (Dulcolax (bisacodyl)) polyethylene glycol 3350 17 17 g PO ONCE #238 grams 07/01/24 gram/dose oral powder Current Visit Medications: Current Medications Generic Name Dose Route Start Last Admin Trade Name Freq PRN Reason Stop Dose Admin Ringer's Solution 1,000 mls @ 80 mls/hr 07/09/24 06:00 07/09/24 06:48 IV 07/09/24 23:59 80 mls/hr INFUSION JUAN Administration IV Miscellaneous Supplies 1 each 07/09/24 06:00 Iv Access IV 07/09/24 23:59 DIRECTED JUAN Sodium Chloride 0 ml 07/09/24 06:00 Normal Saline Flush 10 Ml Syr IV 07/09/24 23:59 PRN PRN Sodium Chloride 0 ml 07/09/24 06:00 Normal Saline 10 Ml Vial IJ 07/09/24 23:59 DIRECTED PRN Sterile Water 0 ml 07/09/24 06:00 Water,Injection,Sterile 10 Ml Vial IJ 07/09/24 23:59 DIRECTED PRN PFSH Active Problems Active Problems: Problem Status Onset Code Posterior subcapsular age-related cataract of left eye Resolved H25.042 Cortical age-related cataract, left eye Resolved H25.012 Nuclear age-related cataract, left eye Resolved H25.12 Diverticulosis Acute K57.90 Medical History Medical History Loose right total knee arthroplasty Menopausal syndrome Diffuse cystic mastopathy Essential hypertension Tubular adenoma of colon Actinic keratoses Seborrheic keratoses Vaginal atrophy Hyperlipidemia Squamous cell carcinoma, arm Facial basal cell cancer Surgical History Surgical History History of arthroplasty of right knee History of colonoscopy (~06/21/19) 2015- Tubular adenoma Tobacco Smoking/Tobacco Use Status: Former Tobacco Use Passive smoking exposure: No Alcohol Alcohol Intake: current Alcohol intake frequency: 0-2 drinks per day Alcohol type: wine Substance Use Substance use: Never Substance use type: does not use Vital Signs and Lab Results Vital Signs Most Recent Vital Signs in EMR: Most Recent Vital Signs Temp Pulse Resp BP Pulse Ox 36.1 C L 83 20 138/79 98 07/09/24 06:32 07/09/24 06:32 07/09/24 06:32 07/09/24 06:32 07/09/24 06:32 Lab Results Blood Type / Crossmatch: No Data to Display Complete Blood Count: No Data to Display Complete Metabolic Panel: Sodium 141 mmol/L (136-145) 06/15/24 10:35 Potassium 4.5 mmol/L (3.5-5.1) 06/15/24 10:35 Chloride 105 mmol/L (98-107) 06/15/24 10:35 Carbon Dioxide 29.6 mmol/L (21.0-32.0) 06/15/24 10:35 BUN 21 mg/dL (7-18) H 06/15/24 10:35 Creatinine 0.9 mg/dL (0.55-1.02) 06/15/24 10:35 Est GFR (CKD-EPI 2020) 67.50 (mL/min/1.73m2) 06/15/24 10:35 Calcium 9.8 mg/dL (8.5-10.1) 06/15/24 10:35 Glucose 102 mg/dL (74-106) 06/15/24 10:35 Liver Function Panel: No Data to Display Coagulation Panel: No Data to Display Cardiac Panel: No Data to Display Arterial Blood Gas: No Data to Display Venous Blood Gas: No Data to Display Pancreas Panel: No Data to Display Thyroid Panel: No Data to Display Infectious Disease: No Data to Display Blood Cultures: No Data to Display Toxicology Panel: No Data to Display Anesthesia Assessment and Plan Anesthesia History Personal History: No History of Anesthesia Complications Family History: No Family History of Anesthesia Complications Exercise Tolerance Exercise Tolerance: Metabolic Equivalents>4 Pertinent Negatives Pertinent Negatives: No Major Cardiovascular Symptoms or Complaints, No Major Pulmonary Symptoms or Complaints and No History of CVA/TIA Cardiac & Pulmonary Exam Cardiac Exam: Normal S1/S2 Heart Sounds Pulmonary Exam: Clear Bilateral Breath Sounds Implantable Cardiac Device Does patient have a Pacemaker or an ICD?: No Airway Exam Known Difficult Airway: No Mallampati Class: 2 Mouth Opening: Normal (> 3cm) Thyromental Distance: Greater than 3 cm Neck Range of Motion: Full ROM Neck Circumference: Normal Teeth Condition: Normal Dentition ASA Classification ASA Score: ASA 2 Emergency Case?: No NPO Status NPO Status: NPO Clears >2 hours, Solids >8 hours Anesthesia Plan Resuscitation Status: Full Code Anesthesia Technique: General Anesthesia Airway Planned: Natural Airway Monitors Used: Standard Monitors Preoperative Comments:: Nausea and bloating immediately after prior colonoscopy, will premedicate with zofran and surgeon aware.
[2024-07-09 07:18] VITALS: BMI 25.0
--- NOTE | 2024-07-09 08:12 | W.COLOREPORT ---
Date of service: 07/09/24 Time of Service: 08:12 Colonoscopy Report Date of procedure: 07/09/24 Pre-op diagnosis general: history of colon polyps Procedure: Colonoscopy with biopsy polyp Surgeon: Toyin Kim Anesthesia Type: General:No Airway Estimated blood loss (mL): 5 Pathology: other Complications: None Disposition: same day Indications: Patient with colon polyps removed on a previous colonoscopy in 2019. Findings: Severe diverticulosis was noted in the sigmoid colon with proximal colonic dilation. Tortuous colon was noted which required holding manual pressure in the sigmoid area. A single, 4 mm, erythematous polypoid area of mucosa was found amidst the diverticulosis. This is likely a diverticular associated polyp that is removed with a single bite of the biopsy forceps for pathology. Excellent bowel prep Procedure Description: After the risks, benefits, and alternatives of the procedure were thoroughly explained, informed consent was obtained. The Patient is brought to the procedure room and time out is performed confirming patient identity, nature of procedure. Patient is connected to monitoring devices including O2 sat, EKG and given supplemental oxygen per anesthesia. After appropriate anesthetic is obtained, patient is placed in the left lateral decubitus position and digital rectal exam performed with the findings noted . The colonoscope is inserted through the anus and guided under direct vision to the proximal colon as confirmed by presence of the appendiceal orifice and the ileocecal valve. The colonoscope is then slowly withdrawn , inspecting all aspects of the mucosa completely. Findings and any associated intervention, are noted above. The colonoscope was then completely withdrawn from the patient and the procedure terminated. The patient tolerated the procedure well and is transferred back to the Day surgery unit in stable condition.
[2024-07-09 08:15] VITALS: BP 121/68; PULSE 79; RESP 16; TEMP 35.9; O2SAT 97
--- NOTE | 2024-07-09 08:15 | W.PM.DSUDISC ---
Date of service: 07/09/24 Discharge Plan Disposition Patient Disposition: Home Discharge Details Attending Provider: Toyin Kim Primary Care Provider: Carissa Cortes Home Meds and New Rx's Prescriptions: No Action bisacodyl [Dulcolax (bisacodyl)] 5 mg tablet,delayed release (DR/EC) 5 mg PO ONCE Qty: 4 0RF Rx Instructions: Take per colonoscopy instructions provided by ordering providers office polyethylene glycol 3350 17 gram/dose powder 17 g PO ONCE Qty: 238 0RF Rx Instructions: Take per colonoscopy instructions provided by ordering providers office ibuprofen 200 mg capsule 200 mg PO Q6H PRN calcium carbonate-vitamin D3 600 mg(1,500mg) -200 unit tablet 1 tab PO DAILY irbesartan 150 mg tablet 150 mg PO DAILY acetaminophen 500 mg Tablet 1,000 mg PO PRN PRN simvastatin 20 mg tablet 20 mg PO HS Patient Comments: TAKE ONE TABLET BY MOUTH EVERY NIGHT Discharge Instructions Additional Instructions: You have severe sigmoid diverticulosis. I recommend that you take a fiber supplement every day. A single possible polyp was found in the sigmoid colon. This was sent for pathology. You will receive notification of the pathology report and a recommendation for a future colonoscopy. Discharge Orders Discharge Orders: Discharge Order (Routine); Ordered 07/09/24 Ordered By: Toyin Kim
[2024-07-09 08:40] VITALS: BP 140/81; PULSE 75; RESP 18; TEMP 36.2; O2SAT 98
--- NOTE | 2024-07-09 08:51 | W.ANESPOSTOP ---
Postoperative Evaluation Date, Time and Location Date Performed: 07/09/24 Time Performed: 08:21 Patient Location: Day Surgery Unit Vital Signs Most Recent Imported Vital Signs: Most Recent Vital Signs Temp Pulse Resp BP Pulse Ox 35.9 C L 79 16 121/68 97 07/09/24 08:15 07/09/24 08:15 07/09/24 08:15 07/09/24 08:15 07/09/24 08:15 Pain Score Most Recent Pain Score: Most Recent Pain Score Pain Level 0 07/09/24 08:15 Assessment Mental Status: Awake (Alert & Oriented to Patient Baseline) Airway and Respiratory Function: Patent airway with normal (patient baseline) respiratory exam Cardiovascular Function: Hemodynamically Stable Hydration Status: Adequately Hydrated Nausea & Vomiting: No Nausea or Vomiting Pain: Pt. Denies Any Pain Peripheral Nerve Block: Patient did not receive a nerve block
== END 2024-07-09 08:54 | disposition home or self-care (01) ==
PROVIDERS: PCP Family Medicine; Visit Provider Surgery
PROC: 0DJD8ZZ Inspection of Lower Intestinal Tract, Via Natural or Artificial Opening Endoscopic (ICD-10-PCS; CPT 45378; principal; 2024-07-09 07:30)
DX: Z12.11 Encounter for screening for malignant neoplasm of colon (principal); Z86.0101 Personal history of adenomatous and serrated colon polyps; K57.30 Diverticulosis of large intestine without perforation or abscess without bleeding; D12.5 Benign neoplasm of sigmoid colon
CPT/HCPCS: 45380; 88305; J2003; J2405; J2704